=== PATIENT | male | born 1930 | race Caucasian/White ===

== ENCOUNTER 2016-08-17 12:46 | Emergency (ER) | payer MEDICARE, BC ==
[2016-08-17] MEDS ORDERED: GLUCOPHAGE850 MG PO (12:50)
[2016-08-17] MEDS ORDERED: PREDNISONE10 MG PO (13:25)
[2016-08-17] MEDS ORDERED: ZYRTEC10 M3 PO (13:25)
[2016-08-17 13:32] VITALS: BP 128/73
== END 2016-08-17 13:35 | disposition home or self-care (01) ==
LOC: ED 12:46
DX: L23.9 Allergic contact dermatitis, unspecified cause (principal); E11.8 Type 2 diabetes mellitus with unspecified complications; Z79.84 Long term (current) use of oral hypoglycemic drugs

== ENCOUNTER → 2016-09-08 | Outpatient (CLI) | payer MEDICARE, BC ==
[2016-08-17 13:32] VITALS: BP 128/73
[~2016-09-08] MED LIST: GLUCOPHAGE850 MG PO; PREDNISONE10 MG PO; ZYRTEC10 M3 PO
== END ==
LOC: LAB 08:35
DX: E11.9 Type 2 diabetes mellitus without complications (principal); Z12.5 Encounter for screening for malignant neoplasm of prostate; E78.5 Hyperlipidemia, unspecified; L23.9 Allergic contact dermatitis, unspecified cause; R20.2 Paresthesia of skin

== ENCOUNTER → 2016-09-13 | Outpatient (CLI) | payer MEDICARE, BC ==
[2016-08-17 13:32] VITALS: BP 128/73
== END ==
LOC: LAB 08:24
DX: Z12.11 Encounter for screening for malignant neoplasm of colon (principal)

== ENCOUNTER → 2016-09-21 | Outpatient (CLI) | payer MEDICARE, BC | LOC: LAB 09:08 | DX: N30.00 Acute cystitis without hematuria (principal) ==

== ENCOUNTER → 2017-01-09 | Outpatient (CLI) | payer MEDICARE, BC ==
[~2017-01-09] VITALS: Ht 177.8 cm; Wt 79.1 kg
[~2017-01-09] MED LIST changes: +CIPRO500 M1 PO
[2017-01-09 11:52] VITALS: BP 136/72
== END ==
LOC: AMSURD 11:35
DX: I49.3 Ventricular premature depolarization (principal)

== ENCOUNTER → 2017-04-16 | Outpatient (CLI) | payer MEDICARE, BC ==
[2017-01-09 11:52] VITALS: BP 136/72
[2017-04-16 09:52] LABS: ALBUMIN 4.4 g/dL (3.5-5.0); BASO # 0.1 (0.02-0.10); BUN/CREATININE RATIO 21.5 (6.0-26.0); DIRECT BILIRUBIN 0.2 mg/dL (0.0-0.4); EOS # 0.2 (0.04-0.40); EOS % 2.1 % (0.0-4.0); HEMATOCRIT 46.8 % (42.0-52.0); HEMOGLOBIN 15.4 g/dL (13.5-18.0); LYMPH# 2.1 (1.50-4.00); MEAN CELL VOLUME 99 fl (78-100); MEAN CORPUSCULAR HEMOGLOBIN 32 pg (27-31); MEAN CORPUSCULAR HGB CONC 33 g/dL (33-37); MEAN PLATELET VOLUME 9.2 fl (7.4-10.4); MONO # 0.8 (0.20-0.80); NEU # 4.4 (1.40-6.50); PLATELET COUNT 243 K/mm3 (130-400); POTASSIUM 4.4 mmol/L (3.6-5.0); RED BLOOD COUNT 4.75 M/mm3 (4.20-5.60); RED CELL DISTRIBUTION WIDTH 13.1 % (11.5-14.5); TOTAL BILIRUBIN 0.3 mg/dL (0.2-1.3); TOTAL PROTEIN 7.9 g/dL (6.3-8.2); WHITE BLOOD COUNT 7.6 K/mm3 (4.8-10.8)
== END ==
LOC: LAB 09:19
PROVIDERS: Internal Medicine
DX: E11.9 Type 2 diabetes mellitus without complications (principal); L23.9 Allergic contact dermatitis, unspecified cause; E78.2 Mixed hyperlipidemia; B35.1 Tinea unguium

== ENCOUNTER → 2017-10-10 | Outpatient (CLI) | payer MEDICARE, BC ==
[2017-01-09 11:52] VITALS: BP 136/72
[2017-10-10 14:45] LABS: BASO # 0.1 (0.02-0.10); EOS # 0.2 (0.04-0.40); EOS % 2.4 % (0.0-4.0); HEMOGLOBIN 14.5 g/dL (13.5-18.0); LYMPH# 2.2 (1.50-4.00); MEAN CELL VOLUME 97 fl (78-100); MEAN CORPUSCULAR HEMOGLOBIN 32 pg (27-31); MEAN CORPUSCULAR HGB CONC 33 g/dL (33-37); MEAN PLATELET VOLUME 9.2 fl (7.4-10.4); MONO # 0.7 (0.20-0.80); PLATELET COUNT 220 K/mm3 (130-400); RED BLOOD COUNT 4.55 M/mm3 (4.20-5.60); RED CELL DISTRIBUTION WIDTH 12.7 % (11.5-14.5); WHITE BLOOD COUNT 7.2 K/mm3 (4.8-10.8)
[2017-10-10 15:58] LABS: ALBUMIN 4.5 g/dL (3.5-5.0); BUN/CREATININE RATIO 28.1 (6.0-26.0); CALCIUM 9.2 mg/dL (8.4-10.2); POTASSIUM 4.2 mmol/L (3.6-5.0); TOTAL BILIRUBIN 0.6 mg/dL (0.2-1.3); TOTAL PROTEIN 7.6 g/dL (6.3-8.2)
[2017-10-10 16:18] LABS: ERYTHROCYTE SEDIMENTATION RATE 11 mm/hr (0-20)
[2017-10-10 16:26] LABS: PH-URINE 5.5 (5.0 - 8.0); URINE APPEARANCE CLEAR; URINE BILIRUBIN NEGATIVE (NEGATIVE); URINE BLOOD TRACE (NEGATIVE); URINE COLOR YELLOW; URINE GLUCOSE NEGATIVE (NEGATIVE); URINE KETONE NEGATIVE (NEGATIVE); URINE LEUKOCYTE ESTERASE TRACE (NEGATIVE); URINE NITRATE NEGATIVE (NEGATIVE); URINE PROTEIN(semi-quant) TRACE mg/dL (NEGATIVE); URINE UROBILINOGEN NORMAL (NORMAL)
[2017-10-10 22:31] LABS: TESTOSTERONE 566 ng/dL (221-716)
== END ==
LOC: LAB 14:13
PROVIDERS: Internal Medicine
DX: Z12.5 Encounter for screening for malignant neoplasm of prostate (principal); E11.9 Type 2 diabetes mellitus without complications; E78.2 Mixed hyperlipidemia; N52.9 Male erectile dysfunction, unspecified; R20.2 Paresthesia of skin

== ENCOUNTER → 2017-11-20 | Outpatient (CLI) | payer MEDICARE, BC ==
[2017-01-09 11:52] VITALS: BP 136/72
[2017-11-20 15:18] LABS: BASO # 0.1 (0.02-0.10); EOS # 0.2 (0.04-0.40); EOS % 2.6 % (0.0-4.0); HEMATOCRIT 44.4 % (42.0-52.0); HEMOGLOBIN 14.8 g/dL (13.5-18.0); LYMPH# 2.5 (1.50-4.00); MEAN CELL VOLUME 97 fl (78-100); MEAN CORPUSCULAR HEMOGLOBIN 33 pg (27-31); MEAN CORPUSCULAR HGB CONC 33 g/dL (33-37); MEAN PLATELET VOLUME 9.5 fl (7.4-10.4); MONO # 0.7 (0.20-0.80); NEU # 3.4 (1.40-6.50); PLATELET COUNT 214 K/mm3 (130-400); RED BLOOD COUNT 4.56 M/mm3 (4.20-5.60); RED CELL DISTRIBUTION WIDTH 12.5 % (11.5-14.5); WHITE BLOOD COUNT 6.9 K/mm3 (4.8-10.8)
[2017-11-20 15:25] LABS: ALBUMIN 4.4 g/dL (3.5-5.0); CALCIUM 9.8 mg/dL (8.4-10.2); POTASSIUM 4.1 mmol/L (3.6-5.0); TOTAL BILIRUBIN 0.3 mg/dL (0.2-1.3); TOTAL PROTEIN 7.4 g/dL (6.3-8.2)
== END ==
LOC: LAB 14:32
PROVIDERS: Internal Medicine
DX: E11.9 Type 2 diabetes mellitus without complications (principal); E78.5 Hyperlipidemia, unspecified; L23.9 Allergic contact dermatitis, unspecified cause

== ENCOUNTER 2018-03-29 10:44 | Emergency (ER) | payer MEDICARE, BC ==
[~2018-03-29] VITALS: Ht 180.3 cm; Wt 80.0 kg
[2018-03-29 11:25] LABS: BASO # 0.1 (0.02-0.10); EOS # 0.2 (0.04-0.40); EOS % 2.3 % (0.0-4.0); HEMATOCRIT 44.9 % (42.0-52.0); HEMOGLOBIN 14.9 g/dL (13.5-18.0); LYMPH# 1.6 (1.50-4.00); MEAN CELL VOLUME 97 fl (78-100); MEAN CORPUSCULAR HEMOGLOBIN 32 pg (27-31); MEAN CORPUSCULAR HGB CONC 33 g/dL (33-37); MEAN PLATELET VOLUME 9.4 fl (7.4-10.4); MONO # 0.7 (0.20-0.80); NEU # 4.4 (1.40-6.50); PLATELET COUNT 240 K/mm3 (130-400); RED BLOOD COUNT 4.65 M/mm3 (4.20-5.60); RED CELL DISTRIBUTION WIDTH 12.9 % (11.5-14.5)
[2018-03-29 11:33] LABS: ALBUMIN 4.4 g/dL (3.5-5.0); CALCIUM 9.4 mg/dL (8.4-10.2); POTASSIUM 4.5 mmol/L (3.6-5.0); TOTAL BILIRUBIN 0.4 mg/dL (0.2-1.3); TOTAL PROTEIN 7.2 g/dL (6.3-8.2)
[2018-03-29 13:44] VITALS: BP 153/86
== END 2018-03-29 13:45 | disposition short-term general hospital (02) ==
LOC: ED 10:44
PROVIDERS: Nurse Practitioner Primary Care
DX: I21.4 Non-ST elevation (NSTEMI) myocardial infarction (principal); E11.8 Type 2 diabetes mellitus with unspecified complications; F41.9 Anxiety disorder, unspecified; Z79.84 Long term (current) use of oral hypoglycemic drugs

== ENCOUNTER → 2018-04-29 | Outpatient (CLI) | payer MEDICARE, BC | LOC: RAD 09:59 | DX: N28.1 Cyst of kidney, acquired (principal) ==

== ENCOUNTER → 2018-05-14 | Outpatient (CLI) | payer MEDICARE, BC ==
[2018-05-14 11:53] LABS: BASO # 0.1 (0.02-0.10); EOS # 0.4 (0.04-0.40); HEMATOCRIT 41.8 % (42.0-52.0); HEMOGLOBIN 13.3 g/dL (13.5-18.0); MEAN CELL VOLUME 97 fl (78-100); MEAN CORPUSCULAR HEMOGLOBIN 31 pg (27-31); MEAN CORPUSCULAR HGB CONC 32 g/dL (33-37); MEAN PLATELET VOLUME 9.3 fl (7.4-10.4); MONO # 0.9 (0.20-0.80); NEU # 4.3 (1.40-6.50); PLATELET COUNT 254 K/mm3 (130-400); RED BLOOD COUNT 4.33 M/mm3 (4.20-5.60); RED CELL DISTRIBUTION WIDTH 13.4 % (11.5-14.5); WHITE BLOOD COUNT 7.7 K/mm3 (4.8-10.8)
[2018-05-14 11:56] LABS: EOS % 5.7 % (0.0-4.0)
[2018-05-14 12:10] LABS: ALBUMIN 4.5 g/dL (3.5-5.0); CALCIUM 9.9 mg/dL (8.4-10.2); POTASSIUM 4.5 mmol/L (3.6-5.0); TOTAL BILIRUBIN 0.4 mg/dL (0.2-1.3); TOTAL PROTEIN 7.7 g/dL (6.3-8.2)
== END ==
LOC: LAB 11:34
PROVIDERS: Internal Medicine
DX: E11.9 Type 2 diabetes mellitus without complications (principal); I25.10 Atherosclerotic heart disease of native coronary artery without angina pectoris; E78.2 Mixed hyperlipidemia

== ENCOUNTER 2018-07-29 09:17 | Emergency (ER) | payer MEDICARE, BC ==
[2018-07-29] MEDS ORDERED: LOPRESSOR 225 MG/TAB PO (09:27)
[2018-07-29] MEDS ORDERED: ATORVASTATIN CA80 MG PO (09:27)
[2018-07-29 09:44] VITALS: BP 132/75
== END 2018-07-29 09:45 | disposition home or self-care (01) ==
LOC: ED 09:17
DX: S61.202A Unspecified open wound of right middle finger without damage to nail, initial encounter (principal); W27.8XXA Contact with other nonpowered hand tool, initial encounter; Z98.890 Other specified postprocedural states; Z79.84 Long term (current) use of oral hypoglycemic drugs

== ENCOUNTER → 2018-11-25 | Outpatient (CLI) | payer MEDICARE, BC ==
[~2018-11-25] MED LIST changes: +ATORVASTATIN CA80 MG PO; +LOPRESSOR 225 MG/TAB PO
[2018-11-25 11:35] LABS: BASO # 0.1 (0.02-0.10); EOS # 0.2 (0.04-0.40); EOS % 3.1 % (0.0-4.0); HEMATOCRIT 44.2 % (42.0-52.0); HEMOGLOBIN 14.7 g/dL (13.5-18.0); LYMPH# 2.4 (1.50-4.00); MEAN CELL VOLUME 96 fl (78-100); MEAN CORPUSCULAR HEMOGLOBIN 32 pg (27-31); MEAN CORPUSCULAR HGB CONC 33 g/dL (33-37); MEAN PLATELET VOLUME 9.5 fl (7.4-10.4); MONO # 0.8 (0.20-0.80); NEU # 3.7 (1.40-6.50); PLATELET COUNT 208 K/mm3 (130-400); RED BLOOD COUNT 4.62 M/mm3 (4.20-5.60); RED CELL DISTRIBUTION WIDTH 12.9 % (11.5-14.5); WHITE BLOOD COUNT 7.2 K/mm3 (4.8-10.8)
[2018-11-25 12:21] LABS: ALBUMIN 4.5 g/dL (3.4-4.8); POTASSIUM 4.6 mmol/L (3.5-5.1)
[2018-11-25 12:22] LABS: CALCIUM 10.3 mg/dL (8.3-10.5)
[2018-11-25 12:24] LABS: TOTAL PROTEIN 7.6 g/dL (6.2-8.1)
[2018-11-25 12:44] LABS: ERYTHROCYTE SEDIMENTATION RATE 8 mm/hr (0-20)
[2018-11-25 12:59] LABS: URINE APPEARANCE CLEAR; URINE BILIRUBIN NEGATIVE (NEGATIVE); URINE BLOOD NEGATIVE (NEGATIVE); URINE COLOR YELLOW; URINE GLUCOSE NEGATIVE (NEGATIVE); URINE KETONE NEGATIVE (NEGATIVE); URINE LEUKOCYTE ESTERASE NEGATIVE (NEGATIVE); URINE NITRATE NEGATIVE (NEGATIVE); URINE PROTEIN(semi-quant) TRACE mg/dL (NEGATIVE); URINE UROBILINOGEN NORMAL (NORMAL)
[2018-11-25 22:43] LABS: CREATININE OTHER SOURCE 50 mg/dL (())
== END ==
LOC: LAB 11:03
PROVIDERS: Internal Medicine
DX: Z12.5 Encounter for screening for malignant neoplasm of prostate (principal); Z12.11 Encounter for screening for malignant neoplasm of colon; E11.9 Type 2 diabetes mellitus without complications; I25.10 Atherosclerotic heart disease of native coronary artery without angina pectoris; E78.2 Mixed hyperlipidemia; N52.9 Male erectile dysfunction, unspecified

== ENCOUNTER → 2019-02-03 | Outpatient (CLI) | payer MEDICARE, BC ==
[2019-02-03 16:09] LABS: BASO # 0.1 (0.02-0.10); EOS # 0.2 (0.04-0.40); EOS % 3.4 % (0.0-4.0); HEMATOCRIT 43.8 % (42.0-52.0); HEMOGLOBIN 14.2 g/dL (13.5-18.0); LYMPH# 2.6 (1.50-4.00); MEAN CELL VOLUME 98 fl (78-100); MEAN CORPUSCULAR HEMOGLOBIN 32 pg (27-31); MEAN CORPUSCULAR HGB CONC 32 g/dL (33-37); MEAN PLATELET VOLUME 8.7 fl (7.4-10.4); MONO # 0.8 (0.20-0.80); NEU # 3.1 (1.40-6.50); PLATELET COUNT 208 K/mm3 (130-400); RED BLOOD COUNT 4.49 M/mm3 (4.20-5.60); RED CELL DISTRIBUTION WIDTH 13.1 % (11.5-14.5); WHITE BLOOD COUNT 6.8 K/mm3 (4.8-10.8)
[2019-02-03 16:19] LABS: PH-URINE 7.5 (5.0 - 8.0); URINE APPEARANCE CLEAR; URINE BILIRUBIN NEGATIVE (NEGATIVE); URINE BLOOD TRACE (NEGATIVE); URINE COLOR YELLOW; URINE GLUCOSE NEGATIVE (NEGATIVE); URINE KETONE NEGATIVE (NEGATIVE); URINE LEUKOCYTE ESTERASE NEGATIVE (NEGATIVE); URINE MUCUS PRESENT (NOT PRESENT); URINE NITRATE NEGATIVE (NEGATIVE); URINE PROTEIN(semi-quant) TRACE mg/dL (NEGATIVE); URINE UROBILINOGEN NORMAL (NORMAL)
[2019-02-03 16:20] LABS: ALBUMIN 4.4 g/dL (3.4-4.8)
[2019-02-03 16:21] LABS: POTASSIUM 4.2 mmol/L (3.5-5.1); SODIUM 140 mmol/L (136-145)
[2019-02-03 16:22] LABS: CALCIUM 10.3 mg/dL (8.3-10.5)
[2019-02-03 16:23] LABS: GLUCOSE 134 mg/dL (75-110); TOTAL PROTEIN 7.1 g/dL (6.2-8.1)
[2019-02-03 16:25] LABS: TOTAL BILIRUBIN 0.5 mg/dL (0.2-1.2)
[2019-02-03 16:28] LABS: AST-SGOT 24 U/L (5-34)
[2019-02-03 16:29] LABS: ALT/SGPT 29 U/L (0-55)
[2019-02-03 16:40] LABS: CARBON DIOXIDE 28 mmol/L (23-31)
[2019-02-03 17:15] LABS: ERYTHROCYTE SEDIMENTATION RATE 7 mm/hr (0-20)
== END ==
LOC: LAB 15:56
PROVIDERS: Family Medicine
DX: D69.2 Other nonthrombocytopenic purpura (principal); L57.0 Actinic keratosis; B07.9 Viral wart, unspecified

== ENCOUNTER → 2019-07-22 | Outpatient (CLI) | payer MEDICARE, BC ==
[2019-07-22 11:25] LABS: BASO # 0.1 (0.02-0.10); EOS # 0.2 (0.04-0.40); EOS % 2.1 % (0.0-4.0); HEMATOCRIT 43.7 % (42.0-52.0); HEMOGLOBIN 14.3 g/dL (13.5-18.0); LYMPH# 2.1 (1.50-4.00); MEAN CELL VOLUME 97 fl (78-100); MEAN CORPUSCULAR HEMOGLOBIN 32 pg (27-31); MEAN CORPUSCULAR HGB CONC 33 g/dL (33-37); MEAN PLATELET VOLUME 9.3 fl (7.4-10.4); MONO # 0.9 (0.20-0.80); NEU # 4.7 (1.40-6.50); PLATELET COUNT 214 K/mm3 (130-400); RED BLOOD COUNT 4.53 M/mm3 (4.20-5.60); RED CELL DISTRIBUTION WIDTH 12.6 % (11.5-14.5); WHITE BLOOD COUNT 7.9 K/mm3 (4.8-10.8)
[2019-07-22 11:31] LABS: ALBUMIN 4.3 g/dL (3.4-4.8); POTASSIUM 4.5 mmol/L (3.5-5.1)
[2019-07-22 11:32] LABS: CALCIUM 9.8 mg/dL (8.3-10.5)
[2019-07-22 11:33] LABS: TOTAL PROTEIN 7.3 g/dL (6.2-8.1)
[2019-07-22 11:35] LABS: TOTAL BILIRUBIN 0.7 mg/dL (0.2-1.2)
[2019-07-22 11:40] LABS: MAGNESIUM 1.66 mg/dL (1.60-2.60)
[2019-07-22 12:27] LABS: ERYTHROCYTE SEDIMENTATION RATE 13 mm/hr (0-20)
== END ==
LOC: LAB 11:04
PROVIDERS: Internal Medicine
DX: M16.0 Bilateral primary osteoarthritis of hip (principal); S79.912A Unspecified injury of left hip, initial encounter; E11.9 Type 2 diabetes mellitus without complications; I25.10 Atherosclerotic heart disease of native coronary artery without angina pectoris

== ENCOUNTER → 2019-12-08 | Outpatient (CLI) | payer MEDICARE, BC ==
[2019-12-08 12:47] LABS: BASO # 0.1 (0.02-0.10); EOS # 0.2 (0.04-0.40); EOS % 2.3 % (0.0-4.0); HEMATOCRIT 44.9 % (42.0-52.0); HEMOGLOBIN 14.6 g/dL (13.5-18.0); LYMPH# 3.1 (1.50-4.00); MEAN CELL VOLUME 96 fl (78-100); MEAN CORPUSCULAR HEMOGLOBIN 31 pg (27-31); MEAN CORPUSCULAR HGB CONC 33 g/dL (33-37); NEU # 4.9 (1.40-6.50); PLATELET COUNT 231 K/mm3 (130-400); RED BLOOD COUNT 4.68 M/mm3 (4.20-5.60); WHITE BLOOD COUNT 9.2 K/mm3 (4.8-10.8)
[2019-12-08 13:12] LABS: ALBUMIN 4.6 g/dL (3.4-4.8); POTASSIUM 4.2 mmol/L (3.5-5.1); TOTAL BILIRUBIN 0.5 mg/dL (0.2-1.2); TOTAL PROTEIN 7.7 g/dL (6.2-8.1)
[2019-12-08 13:16] LABS: MAGNESIUM 1.74 mg/dL (1.60-2.60)
[2019-12-08 13:44] LABS: ERYTHROCYTE SEDIMENTATION RATE 13 mm/hr (0-20)
[2019-12-08 14:00] LABS: URINE APPEARANCE CLEAR; URINE BILIRUBIN NEGATIVE (NEGATIVE); URINE BLOOD NEGATIVE (NEGATIVE); URINE COLOR YELLOW; URINE GLUCOSE NEGATIVE (NEGATIVE); URINE KETONE NEGATIVE (NEGATIVE); URINE LEUKOCYTE ESTERASE NEGATIVE (NEGATIVE); URINE MUCUS PRESENT (NOT PRESENT); URINE NITRATE NEGATIVE (NEGATIVE); URINE PROTEIN(semi-quant) NEGATIVE (NEGATIVE); URINE UROBILINOGEN NORMAL (NORMAL)
== END ==
LOC: LAB 12:33
PROVIDERS: Internal Medicine
DX: Z12.5 Encounter for screening for malignant neoplasm of prostate (principal); Z12.11 Encounter for screening for malignant neoplasm of colon; E11.9 Type 2 diabetes mellitus without complications; I25.10 Atherosclerotic heart disease of native coronary artery without angina pectoris; N52.9 Male erectile dysfunction, unspecified; E78.2 Mixed hyperlipidemia

== ENCOUNTER → 2020-02-09 | Outpatient (CLI) | payer MEDICARE, BC ==
[2020-02-09 11:02] LABS: BASO # 0.1 (0.02-0.10); EOS # 0.2 (0.04-0.40); EOS % 2.2 % (0.0-4.0); HEMATOCRIT 40.5 % (42.0-52.0); HEMOGLOBIN 13.2 g/dL (13.5-18.0); LYMPH# 2.1 (1.50-4.00); MEAN CELL VOLUME 97 fl (78-100); MEAN CORPUSCULAR HEMOGLOBIN 32 pg (27-31); MEAN CORPUSCULAR HGB CONC 33 g/dL (33-37); MEAN PLATELET VOLUME 8.9 fl (7.4-10.4); MONO # 0.7 (0.20-0.80); NEU # 3.7 (1.40-6.50); PLATELET COUNT 216 K/mm3 (130-400); RED BLOOD COUNT 4.18 M/mm3 (4.20-5.60); RED CELL DISTRIBUTION WIDTH 12.9 % (11.5-14.5); WHITE BLOOD COUNT 6.7 K/mm3 (4.8-10.8)
[2020-02-09 11:11] LABS: ALBUMIN 4.1 g/dL (3.4-4.8); POTASSIUM 4.7 mmol/L (3.5-5.1)
[2020-02-09 11:13] LABS: CALCIUM 9.3 mg/dL (8.3-10.5)
[2020-02-09 11:14] LABS: TOTAL PROTEIN 6.8 g/dL (6.2-8.1)
[2020-02-09 11:16] LABS: TOTAL BILIRUBIN 0.5 mg/dL (0.2-1.2)
[2020-02-09 11:20] LABS: MAGNESIUM 1.61 mg/dL (1.60-2.60)
[2020-02-09 11:48] LABS: PROTHROMBIN TIME 10.7 SECONDS (9.0-12.0)
[2020-02-09 12:41] LABS: URINE APPEARANCE CLEAR; URINE BILIRUBIN NEGATIVE (NEGATIVE); URINE BLOOD NEGATIVE (NEGATIVE); URINE COLOR YELLOW; URINE GLUCOSE NEGATIVE (NEGATIVE); URINE KETONE NEGATIVE (NEGATIVE); URINE LEUKOCYTE ESTERASE NEGATIVE (NEGATIVE); URINE NITRATE NEGATIVE (NEGATIVE); URINE PROTEIN(semi-quant) NEGATIVE (NEGATIVE); URINE UROBILINOGEN NORMAL (NORMAL); URINE WBC 0-1 /hpf (0-3)
== END ==
LOC: AMSURD 10:23 → LAB 10:23
PROVIDERS: Internal Medicine
DX: Z01.818 Encounter for other preprocedural examination (principal); Z98.84 Bariatric surgery status

== ENCOUNTER → 2020-02-27 | Outpatient (CLI) | payer MEDICARE, BC | LOC: LAB 09:30 → CARDREHAB 09:30 → CARDLAB 14:16 | DX: Z01.818 Encounter for other preprocedural examination (principal); I25.10 Atherosclerotic heart disease of native coronary artery without angina pectoris | CPT/HCPCS: A9500 ==

== ENCOUNTER → 2020-03-09 | Outpatient (CLI) | payer MEDICARE, BC | LOC: LAB 14:41 | DX: Z12.5 Encounter for screening for malignant neoplasm of prostate (principal) ==

== ENCOUNTER → 2020-04-19 | Outpatient (CLI) | payer MEDICARE, BC | LOC: LAB 07:41 | PROVIDERS: Internal Medicine | DX: C61 Malignant neoplasm of prostate (principal) ==

== ENCOUNTER → 2020-05-04 | Outpatient (CLI) | payer MEDICARE, BC ==
[2020-04-27 13:14] VITALS: BP 129/82
== END ==
LOC: RAD 08:34
DX: C61 Malignant neoplasm of prostate (principal); C79.51 Secondary malignant neoplasm of bone; M84.48XA Pathological fracture, other site, initial encounter for fracture; R91.1 Solitary pulmonary nodule
CPT/HCPCS: Q9967

== ENCOUNTER → 2020-05-18 | Outpatient (CLI) | payer MEDICARE, BC ==
[2020-05-17 12:50] VITALS: BP 135/74
[2020-05-18 10:07] LABS: HEMATOCRIT 38.9 % (42.0-52.0); HEMOGLOBIN 12.5 g/dL (13.5-18.0); MEAN CELL VOLUME 96 fl (78-100); MEAN CORPUSCULAR HEMOGLOBIN 31 pg (27-31); MEAN CORPUSCULAR HGB CONC 32 g/dL (33-37); PLATELET COUNT 236 K/mm3 (130-400); RED BLOOD COUNT 4.04 M/mm3 (4.20-5.60); RED CELL DISTRIBUTION WIDTH 15.5 % (11.5-14.5); WHITE BLOOD COUNT 5.4 K/mm3 (4.8-10.8)
[2020-05-18 10:08] LABS: MEAN PLATELET VOLUME 8.5 fl (7.4-10.4)
[2020-05-18 10:11] LABS: LYMPH# 2.3 (1.50-4.00); MONO # 0.6 (0.20-0.80); NEU # 2.5 (1.40-6.50)
[2020-05-18 10:13] LABS: ALBUMIN 3.9 g/dL (3.4-4.8); POTASSIUM 5.4 mmol/L (3.5-5.1)
[2020-05-18 10:15] LABS: CALCIUM 9.7 mg/dL (8.3-10.5)
[2020-05-18 10:16] LABS: TOTAL PROTEIN 7.4 g/dL (6.2-8.1)
[2020-05-18 10:18] LABS: TOTAL BILIRUBIN 0.5 mg/dL (0.2-1.2)
== END ==
LOC: LAB 09:51
PROVIDERS: Internal Medicine
DX: E11.9 Type 2 diabetes mellitus without complications (principal)

== ENCOUNTER 2020-05-19 09:35 | Outpatient (RCR) | payer MEDICARE, BC ==
[2020-05-13 14:55] VITALS: BP 145/70
[2020-05-14 14:55] VITALS: BP 140/80
[2020-05-15 14:48] VITALS: BP 150/82
[2020-05-16 12:51] VITALS: BP 128/71
[2020-05-17 12:50] VITALS: BP 135/74
[2020-05-19 09:42] VITALS: BP 133/69
== END 2020-05-19 16:00 | disposition home or self-care (01) ==
LOC: AMSURD 09:35
DX: L89.92 Pressure ulcer of unspecified site, stage 2 (principal)

== ENCOUNTER → 2020-06-15 | Outpatient (CLI) | payer MEDICARE, BC ==
[2020-05-19 09:42] VITALS: BP 133/69
[2020-06-15 09:43] LABS: BASO # 0.1 (0.02-0.10); HEMATOCRIT 40.3 % (42.0-52.0); HEMOGLOBIN 12.9 g/dL (13.5-18.0); LYMPH# 2.2 (1.50-4.00); MEAN CELL VOLUME 98 fl (78-100); MEAN CORPUSCULAR HEMOGLOBIN 32 pg (27-31); MEAN CORPUSCULAR HGB CONC 32 g/dL (33-37); MEAN PLATELET VOLUME 8.6 fl (7.4-10.4); MONO # 0.7 (0.20-0.80); NEU # 3.3 (1.40-6.50); PLATELET COUNT 239 K/mm3 (130-400); RED CELL DISTRIBUTION WIDTH 15.7 % (11.5-14.5); WHITE BLOOD COUNT 6.3 K/mm3 (4.8-10.8)
[2020-06-15 09:44] LABS: POTASSIUM 4.9 mmol/L (3.5-5.1)
[2020-06-15 09:46] LABS: CALCIUM 8.7 mg/dL (8.3-10.5)
[2020-06-15 09:49] LABS: TOTAL BILIRUBIN 0.6 mg/dL (0.2-1.2)
== END ==
LOC: LAB 09:12
PROVIDERS: Internal Medicine
DX: C61 Malignant neoplasm of prostate (principal)

== ENCOUNTER → 2020-07-20 | Outpatient (CLI) | payer MEDICARE, BC ==
[2020-07-20 10:47] LABS: ALBUMIN 4.1 g/dL (3.4-4.8)
[2020-07-20 10:48] LABS: CALCIUM 9.5 mg/dL (8.3-10.5)
[2020-07-20 10:50] LABS: TOTAL PROTEIN 7.1 g/dL (6.2-8.1)
[2020-07-20 10:51] LABS: TOTAL BILIRUBIN 0.6 mg/dL (0.2-1.2)
[2020-07-20 11:28] LABS: HEMATOCRIT 41.2 % (42.0-52.0); HEMOGLOBIN 13.4 g/dL (13.5-18.0); LYMPH# 2.6 (1.50-4.00); MEAN CELL VOLUME 98 fl (78-100); MEAN CORPUSCULAR HEMOGLOBIN 32 pg (27-31); MEAN CORPUSCULAR HGB CONC 33 g/dL (33-37); MEAN PLATELET VOLUME 9.1 fl (7.4-10.4); MONO # 0.8 (0.20-0.80); NEU # 3.5 (1.40-6.50); PLATELET COUNT 245 K/mm3 (130-400); RED BLOOD COUNT 4.19 M/mm3 (4.20-5.60); RED CELL DISTRIBUTION WIDTH 14.1 % (11.5-14.5); WHITE BLOOD COUNT 6.9 K/mm3 (4.8-10.8)
== END ==
LOC: LAB 10:11
PROVIDERS: Internal Medicine
DX: C61 Malignant neoplasm of prostate (principal)

== ENCOUNTER → 2020-08-19 | Outpatient (CLI) | payer MEDICARE, BC ==
[2020-08-19 08:31] LABS: ALBUMIN 3.9 g/dL (3.4-4.8); POTASSIUM 3.9 mmol/L (3.5-5.1)
[2020-08-19 08:32] LABS: CALCIUM 9.2 mg/dL (8.3-10.5)
[2020-08-19 08:34] LABS: TOTAL PROTEIN 6.8 g/dL (6.2-8.1)
[2020-08-19 08:35] LABS: TOTAL BILIRUBIN 0.7 mg/dL (0.2-1.2)
== END ==
LOC: LAB 08:03
PROVIDERS: Internal Medicine
DX: C61 Malignant neoplasm of prostate (principal)

== ENCOUNTER → 2020-09-16 | Outpatient (CLI) | payer MEDICARE, BC ==
[2020-09-16 09:15] LABS: BASO # 0.04 (0.02-0.10); EOS # 0.01 (0.04-0.40); EOS % 0.2 % (0.0-4.0); HEMOGLOBIN 12.4 g/dL (13.5-18.0); LYMPH# 1.63 (1.50-4.00); MEAN CELL VOLUME 100 fl (78-100); MEAN CORPUSCULAR HEMOGLOBIN 33 pg (27-31); MEAN CORPUSCULAR HGB CONC 33 g/dL (33-37); MEAN PLATELET VOLUME 8.4 fl (7.4-10.4); PLATELET COUNT 276 K/mm3 (130-400); RED BLOOD COUNT 3.82 M/mm3 (4.20-5.60); RED CELL DISTRIBUTION WIDTH 12.7 % (11.5-14.5); WHITE BLOOD COUNT 6.5 K/mm3 (4.8-10.8)
[2020-09-16 09:28] LABS: ALBUMIN 3.6 g/dL (3.4-4.8)
[2020-09-16 09:29] LABS: POTASSIUM 4.5 mmol/L (3.5-5.1)
[2020-09-16 09:31] LABS: TOTAL PROTEIN 6.5 g/dL (6.2-8.1)
[2020-09-16 09:33] LABS: TOTAL BILIRUBIN 0.5 mg/dL (0.2-1.2)
== END ==
LOC: LAB 08:51
PROVIDERS: Internal Medicine
DX: C61 Malignant neoplasm of prostate (principal)

== ENCOUNTER → 2020-10-22 | Outpatient (CLI) | payer MEDICARE, BC ==
[2020-10-22 09:49] LABS: POTASSIUM 4.7 mmol/L (3.5-5.1)
[2020-10-22 09:50] LABS: CALCIUM 9.1 mg/dL (8.3-10.5)
[2020-10-22 09:51] LABS: TOTAL PROTEIN 7.1 g/dL (6.2-8.1)
[2020-10-22 09:53] LABS: TOTAL BILIRUBIN 0.6 mg/dL (0.2-1.2)
== END ==
LOC: LAB 09:21
PROVIDERS: Internal Medicine
DX: C61 Malignant neoplasm of prostate (principal)

== ENCOUNTER → 2020-11-10 | Outpatient (CLI) | payer MEDICARE, BC | LOC: LAB 14:29 | DX: C61 Malignant neoplasm of prostate (principal); C79.51 Secondary malignant neoplasm of bone; Z51.0 Encounter for antineoplastic radiation therapy ==

== ENCOUNTER → 2020-11-11 | Outpatient (CLI) | payer MEDICARE, BC ==
[2020-11-11 10:32] LABS: BASO # 0.06 (0.02-0.10); EOS # 0.05 (0.04-0.40); EOS % 0.7 % (0.0-4.0); HEMATOCRIT 39.7 % (42.0-52.0); HEMOGLOBIN 12.8 g/dL (13.5-18.0); LYMPH# 2.19 (1.50-4.00); MEAN CELL VOLUME 101 fl (78-100); MEAN CORPUSCULAR HEMOGLOBIN 33 pg (27-31); MEAN CORPUSCULAR HGB CONC 32 g/dL (33-37); MEAN PLATELET VOLUME 8.3 fl (7.4-10.4); MONO # 0.77 (0.20-0.80); NEU # 3.61 (1.40-6.50); PLATELET COUNT 221 K/mm3 (130-400); RED BLOOD COUNT 3.92 M/mm3 (4.20-5.60); RED CELL DISTRIBUTION WIDTH 12.8 % (11.5-14.5); WHITE BLOOD COUNT 6.7 K/mm3 (4.8-10.8)
[2020-11-11 10:53] LABS: URINE APPEARANCE CLEAR; URINE BILIRUBIN NEGATIVE (NEGATIVE); URINE BLOOD NEGATIVE (NEGATIVE); URINE COLOR YELLOW; URINE GLUCOSE NEGATIVE (NEGATIVE); URINE KETONE NEGATIVE (NEGATIVE); URINE LEUKOCYTE ESTERASE NEGATIVE (NEGATIVE); URINE NITRATE NEGATIVE (NEGATIVE); URINE PROTEIN(semi-quant) NEGATIVE (NEGATIVE); URINE UROBILINOGEN NORMAL (NORMAL); URINE WBC 0-1 /hpf (0-3)
[2020-11-11 11:15] LABS: ALBUMIN 3.8 g/dL (3.4-4.8); POTASSIUM 4.8 mmol/L (3.5-5.1)
[2020-11-11 11:18] LABS: TOTAL PROTEIN 6.9 g/dL (6.2-8.1)
[2020-11-11 11:20] LABS: TOTAL BILIRUBIN 0.4 mg/dL (0.2-1.2)
== END ==
LOC: LAB 10:17
PROVIDERS: Internal Medicine
DX: I25.10 Atherosclerotic heart disease of native coronary artery without angina pectoris (principal); N39.0 Urinary tract infection, site not specified; E11.9 Type 2 diabetes mellitus without complications; K90.9 Intestinal malabsorption, unspecified

== ENCOUNTER → 2020-11-18 | Outpatient (CLI) | payer MEDICARE, BC ==
[2020-11-18 11:35] LABS: BASO # 0.06 (0.02-0.10); EOS # 0.06 (0.04-0.40); EOS % 0.7 % (0.0-4.0); HEMATOCRIT 39.8 % (42.0-52.0); HEMOGLOBIN 12.8 g/dL (13.5-18.0); LYMPH# 2.12 (1.50-4.00); MEAN CELL VOLUME 100 fl (78-100); MEAN CORPUSCULAR HEMOGLOBIN 32 pg (27-31); MEAN CORPUSCULAR HGB CONC 32 g/dL (33-37); MEAN PLATELET VOLUME 8.6 fl (7.4-10.4); MONO # 0.97 (0.20-0.80); NEU # 5.29 (1.40-6.50); PLATELET COUNT 253 K/mm3 (130-400); RED BLOOD COUNT 3.97 M/mm3 (4.20-5.60); RED CELL DISTRIBUTION WIDTH 12.6 % (11.5-14.5); WHITE BLOOD COUNT 8.5 K/mm3 (4.8-10.8)
[2020-11-18 11:39] LABS: ALBUMIN 3.8 g/dL (3.4-4.8); POTASSIUM 4.4 mmol/L (3.5-5.1)
[2020-11-18 11:40] LABS: CALCIUM 10.3 mg/dL (8.3-10.5)
[2020-11-18 11:42] LABS: TOTAL PROTEIN 7.1 g/dL (6.2-8.1)
[2020-11-18 11:43] LABS: TOTAL BILIRUBIN 0.5 mg/dL (0.2-1.2)
== END ==
LOC: LAB 11:05
PROVIDERS: Internal Medicine
DX: C61 Malignant neoplasm of prostate (principal)

== ENCOUNTER → 2020-12-16 | Outpatient (CLI) | payer MEDICARE, BC ==
[2020-12-16 08:59] LABS: ALBUMIN 3.6 g/dL (3.4-4.8); POTASSIUM 4.3 mmol/L (3.5-5.1)
[2020-12-16 09:00] LABS: CALCIUM 9.8 mg/dL (8.3-10.5)
[2020-12-16 09:01] LABS: TOTAL PROTEIN 6.7 g/dL (6.2-8.1)
[2020-12-16 09:03] LABS: TOTAL BILIRUBIN 0.4 mg/dL (0.2-1.2)
== END ==
LOC: LAB 08:39
PROVIDERS: Internal Medicine
DX: C61 Malignant neoplasm of prostate (principal)

== ENCOUNTER → 2021-01-13 | Outpatient (CLI) | payer MEDICARE, BC ==
[2021-01-13 08:57] LABS: BASO # 0.05 K/mm3 (0.02-0.10); EOS # 0.03 K/mm3 (0.04-0.40); EOS % 0.5 % (0.0-4.0); HEMATOCRIT 39.4 % (42.0-52.0); LYMPH# 1.76 K/mm3 (1.50-4.00); MEAN CELL VOLUME 99 fl (78-100); MEAN CORPUSCULAR HEMOGLOBIN 33 pg (27-31); MEAN CORPUSCULAR HGB CONC 33 g/dL (33-37); MEAN PLATELET VOLUME 8.5 fl (7.4-10.4); MONO # 0.62 K/mm3 (0.20-0.80); NEU # 3.26 K/mm3 (1.40-6.50); PLATELET COUNT 237 K/mm3 (130-400); RED CELL DISTRIBUTION WIDTH 12.4 % (11.5-14.5); WHITE BLOOD COUNT 5.7 K/mm3 (4.8-10.8)
[2021-01-13 09:00] LABS: ALBUMIN 3.8 g/dL (3.4-4.8); POTASSIUM 4.6 mmol/L (3.5-5.1)
[2021-01-13 09:01] LABS: CALCIUM 9.9 mg/dL (8.3-10.5)
[2021-01-13 09:02] LABS: TOTAL PROTEIN 7.2 g/dL (6.2-8.1)
[2021-01-13 09:04] LABS: TOTAL BILIRUBIN 0.6 mg/dL (0.2-1.2)
== END ==
LOC: LAB 08:25
PROVIDERS: Internal Medicine
DX: C61 Malignant neoplasm of prostate (principal)

== ENCOUNTER → 2021-02-03 | Outpatient (CLI) | payer MEDICARE, BC ==
[2021-02-03 11:34] LABS: BASO # 0.07 K/mm3 (0.02-0.10); EOS # 0.05 K/mm3 (0.04-0.40); EOS % 0.8 % (0.0-4.0); HEMATOCRIT 39.3 % (42.0-52.0); HEMOGLOBIN 12.6 g/dL (13.5-18.0); LYMPH# 2.32 K/mm3 (1.50-4.00); MEAN CELL VOLUME 100 fl (78-100); MEAN CORPUSCULAR HEMOGLOBIN 32 pg (27-31); MEAN CORPUSCULAR HGB CONC 32 g/dL (33-37); MEAN PLATELET VOLUME 8.3 fl (7.4-10.4); MONO # 0.65 K/mm3 (0.20-0.80); NEU # 3.14 K/mm3 (1.40-6.50); PLATELET COUNT 233 K/mm3 (130-400); RED BLOOD COUNT 3.93 M/mm3 (4.20-5.60); RED CELL DISTRIBUTION WIDTH 12.4 % (11.5-14.5); WHITE BLOOD COUNT 6.3 K/mm3 (4.8-10.8)
[2021-02-03 11:43] LABS: ALBUMIN 3.8 g/dL (3.4-4.8); POTASSIUM 4.1 mmol/L (3.5-5.1)
[2021-02-03 11:46] LABS: TOTAL PROTEIN 6.9 g/dL (6.2-8.1)
[2021-02-03 11:48] LABS: TOTAL BILIRUBIN 0.3 mg/dL (0.2-1.2)
[2021-02-03 11:52] LABS: URINE APPEARANCE CLEAR; URINE BILIRUBIN NEGATIVE (NEGATIVE); URINE BLOOD NEGATIVE (NEGATIVE); URINE COLOR YELLOW; URINE GLUCOSE NEGATIVE (NEGATIVE); URINE KETONE NEGATIVE (NEGATIVE); URINE LEUKOCYTE ESTERASE NEGATIVE (NEGATIVE); URINE MUCUS PRESENT (NOT PRESENT); URINE NITRATE NEGATIVE (NEGATIVE); URINE PROTEIN(semi-quant) 1+ mg/dL (NEGATIVE); URINE UROBILINOGEN NORMAL (NORMAL)
== END ==
LOC: LAB 11:22
PROVIDERS: Internal Medicine
DX: M19.041 Primary osteoarthritis, right hand (principal); S63.24 Subluxation of distal interphalangeal joint of finger; E11.9 Type 2 diabetes mellitus without complications

== ENCOUNTER → 2021-03-10 | Outpatient (CLI) | payer MEDICARE, BC ==
[2021-03-10 09:04] LABS: BASO # 0.05 K/mm3 (0.02-0.10); EOS # 0.05 K/mm3 (0.04-0.40); EOS % 0.8 % (0.0-4.0); HEMATOCRIT 41.8 % (42.0-52.0); HEMOGLOBIN 13.6 g/dL (13.5-18.0); LYMPH# 1.92 K/mm3 (1.50-4.00); MEAN CELL VOLUME 98 fl (78-100); MEAN CORPUSCULAR HEMOGLOBIN 32 pg (27-31); MEAN CORPUSCULAR HGB CONC 33 g/dL (33-37); MEAN PLATELET VOLUME 8.4 fl (7.4-10.4); MONO # 0.73 K/mm3 (0.20-0.80); NEU # 3.56 K/mm3 (1.40-6.50); PLATELET COUNT 234 K/mm3 (130-400); RED BLOOD COUNT 4.27 M/mm3 (4.20-5.60); RED CELL DISTRIBUTION WIDTH 12.9 % (11.5-14.5); WHITE BLOOD COUNT 6.3 K/mm3 (4.8-10.8)
[2021-03-10 09:13] LABS: ALBUMIN 4.2 g/dL (3.4-4.8)
[2021-03-10 09:14] LABS: POTASSIUM 4.7 mmol/L (3.5-5.1)
[2021-03-10 09:15] LABS: CALCIUM 10.1 mg/dL (8.3-10.5)
[2021-03-10 09:16] LABS: TOTAL PROTEIN 7.5 g/dL (6.2-8.1)
[2021-03-10 09:18] LABS: TOTAL BILIRUBIN 0.5 mg/dL (0.2-1.2)
== END ==
LOC: LAB 08:48
PROVIDERS: Internal Medicine
DX: C61 Malignant neoplasm of prostate (principal)

== ENCOUNTER → 2021-04-11 | Outpatient (CLI) | payer MEDICARE, BC ==
[2021-04-11 10:02] LABS: ALBUMIN 3.8 g/dL (3.4-4.8); POTASSIUM 4.8 mmol/L (3.5-5.1)
[2021-04-11 10:03] LABS: CALCIUM 9.3 mg/dL (8.3-10.5)
[2021-04-11 10:05] LABS: TOTAL PROTEIN 6.7 g/dL (6.2-8.1)
[2021-04-11 10:06] LABS: TOTAL BILIRUBIN 0.6 mg/dL (0.2-1.2)
== END ==
LOC: LAB 08:35
PROVIDERS: Internal Medicine
DX: C61 Malignant neoplasm of prostate (principal)

== ENCOUNTER → 2021-05-06 | Outpatient (CLI) | payer MEDICARE, BC ==
[2021-05-06 10:27] LABS: ALBUMIN 4.1 g/dL (3.4-4.8); POTASSIUM 4.8 mmol/L (3.5-5.1)
[2021-05-06 10:29] LABS: TOTAL PROTEIN 7.4 g/dL (6.2-8.1)
[2021-05-06 10:31] LABS: TOTAL BILIRUBIN 0.6 mg/dL (0.2-1.2)
== END ==
LOC: LAB 09:29
PROVIDERS: Internal Medicine
DX: C61 Malignant neoplasm of prostate (principal)

== ENCOUNTER → 2021-06-06 | Outpatient (CLI) | payer MEDICARE, BC ==
[2021-06-06 12:23] LABS: ALBUMIN 4.1 g/dL (3.4-4.8); POTASSIUM 4.5 mmol/L (3.5-5.1)
[2021-06-06 12:24] LABS: CALCIUM 9.6 mg/dL (8.3-10.5)
[2021-06-06 12:25] LABS: TOTAL PROTEIN 7.2 g/dL (6.2-8.1)
[2021-06-06 12:27] LABS: TOTAL BILIRUBIN 0.6 mg/dL (0.2-1.2)
[2021-06-06 12:47] LABS: BASO # 0.07 K/mm3 (0.02-0.10); EOS % 1.6 % (0.0-4.0); HEMATOCRIT 42.3 % (42.0-52.0); HEMOGLOBIN 13.6 g/dL (13.5-18.0); LYMPH# 2.34 K/mm3 (1.50-4.00); MEAN CELL VOLUME 99 fl (78-100); MEAN CORPUSCULAR HEMOGLOBIN 32 pg (27-31); MEAN CORPUSCULAR HGB CONC 32 g/dL (33-37); MEAN PLATELET VOLUME 9.4 fl (7.4-10.4); NEU # 3.09 K/mm3 (1.40-6.50); PLATELET COUNT 243 K/mm3 (130-400); RED BLOOD COUNT 4.27 M/mm3 (4.20-5.60); RED CELL DISTRIBUTION WIDTH 12.7 % (11.5-14.5); WHITE BLOOD COUNT 6.2 K/mm3 (4.8-10.8)
== END ==
LOC: LAB 08:07
PROVIDERS: Internal Medicine
DX: C61 Malignant neoplasm of prostate (principal)

== ENCOUNTER → 2021-06-29 | Day surgery (SDC) | payer MEDICARE, BC | END | disposition home or self-care (01) | LOC: MSO 07:15 | DX: H26.9 Unspecified cataract (principal) | CPT/HCPCS: 00142; J0171; J2250; V2632 ==

== ENCOUNTER → 2021-07-04 | Outpatient (CLI) | payer MEDICARE, BC ==
[2021-07-04 09:41] LABS: ALBUMIN 3.9 g/dL (3.4-4.8)
[2021-07-04 09:42] LABS: POTASSIUM 4.5 mmol/L (3.5-5.1)
[2021-07-04 09:43] LABS: CALCIUM 9.3 mg/dL (8.3-10.5)
[2021-07-04 09:44] LABS: TOTAL PROTEIN 6.8 g/dL (6.2-8.1)
[2021-07-04 09:46] LABS: TOTAL BILIRUBIN 0.5 mg/dL (0.2-1.2)
== END ==
LOC: LAB 08:44
PROVIDERS: Internal Medicine
DX: C61 Malignant neoplasm of prostate (principal)

== ENCOUNTER → 2021-08-01 | Outpatient (CLI) | payer MEDICARE, BC ==
[2021-08-01 09:20] LABS: ALBUMIN 3.9 g/dL (3.4-4.8)
[2021-08-01 09:22] LABS: CALCIUM 9.5 mg/dL (8.3-10.5)
[2021-08-01 09:25] LABS: TOTAL BILIRUBIN 0.6 mg/dL (0.2-1.2)
== END ==
LOC: LAB 08:14
PROVIDERS: Internal Medicine
DX: C61 Malignant neoplasm of prostate (principal)

== ENCOUNTER → 2021-08-18 | Outpatient (CLI) | payer MEDICARE, BC ==
[2021-08-18 11:42] LABS: ALBUMIN 4.1 g/dL (3.4-4.8)
[2021-08-18 11:43] LABS: CALCIUM 8.9 mg/dL (8.3-10.5)
[2021-08-18 11:45] LABS: TOTAL PROTEIN 6.8 g/dL (6.2-8.1)
[2021-08-18 11:46] LABS: TOTAL BILIRUBIN 0.5 mg/dL (0.2-1.2)
[2021-08-18 11:51] LABS: MAGNESIUM 1.86 mg/dL (1.60-2.60)
[2021-08-18 11:59] LABS: URINE APPEARANCE CLEAR; URINE COLOR YELLOW
[2021-08-18 12:00] LABS: URINE BILIRUBIN NEGATIVE (NEGATIVE); URINE BLOOD TRACE (NEGATIVE); URINE GLUCOSE NEGATIVE (NEGATIVE); URINE KETONE NEGATIVE (NEGATIVE); URINE LEUKOCYTE ESTERASE NEGATIVE (NEGATIVE); URINE NITRATE NEGATIVE (NEGATIVE); URINE PROTEIN(semi-quant) TRACE (NEGATIVE); URINE UROBILINOGEN NORMAL (NORMAL)
[2021-08-18 13:36] LABS: BASO # 0.04 K/mm3 (0.02-0.10); EOS # 0.05 K/mm3 (0.04-0.40); EOS % 0.6 % (0.0-4.0); HEMATOCRIT 40.9 % (42.0-52.0); HEMOGLOBIN 13.5 g/dL (13.5-18.0); LYMPH# 2.41 K/mm3 (1.50-4.00); MEAN CELL VOLUME 99 fl (78-100); MEAN CORPUSCULAR HEMOGLOBIN 33 pg (27-31); MEAN CORPUSCULAR HGB CONC 33 g/dL (33-37); MEAN PLATELET VOLUME 9.3 fl (7.4-10.4); NEU # 4.82 K/mm3 (1.40-6.50); PLATELET COUNT 244 K/mm3 (130-400); RED BLOOD COUNT 4.13 M/mm3 (4.20-5.60); RED CELL DISTRIBUTION WIDTH 11.9 % (11.5-14.5); WHITE BLOOD COUNT 7.9 K/mm3 (4.8-10.8)
== END ==
LOC: LAB 11:04
PROVIDERS: Internal Medicine
DX: E11.9 Type 2 diabetes mellitus without complications (principal); I25.10 Atherosclerotic heart disease of native coronary artery without angina pectoris; C61 Malignant neoplasm of prostate; C79.51 Secondary malignant neoplasm of bone; M79.641 Pain in right hand